=== PATIENT | female | born 1990 | race Hispanic/Latino ===

== ENCOUNTER 2019-03-14 13:43 | Outpatient (CLI) | payer OTHER ==
--- NOTE | 2019-03-14 14:37 | ULT ---
RIGHT BREAST ULTRASOUND: HISTORY: Mastalgia. Nipple discharge. FINDINGS: The subareolar region, in particular, was evaluated with ultrasound. There was no evidence for solid or cystic mass. There was no evidence for significant abnormal dilated ducts. The right breast was ev aluated additionally, in the 7, 8, 9, 10, 11 and 12 o'clock positions. No solid or cystic mass. IMPRESSION: 1. Normal right breast ultrasound examination. 2. No abnormal solid or cystic mass or dilated ducts. 3. BI-RADS category 0 - assessment is incomplete. Given the patient's symptoms of pain, consideration for a follow-up right breast diagnostic mammogram is suggested for further assessment. POS: OFF
== END 2019-03-14 13:44 | disposition home or self-care (01) ==
LOC: BICULT 13:43
PROVIDERS: ATTEND Family Medicine
DX: N64.52 Nipple discharge (principal); N64.4 Mastodynia